=== PATIENT | male | born 1995 | race Caucasian/White ===

== ENCOUNTER 2017-01-01 13:52 | Emergency (ER) | payer MEDICAID, OTHER ==
[~2017-01-01] VITALS: Ht 182.9 cm; Wt 99.0 kg
[2017-01-01 14:24] VITALS: Ht 182.9 cm; Wt 99.0 kg
[2017-01-01] MEDS ORDERED: AMO500 PO (15:34)
--- NOTE | 2017-01-01 15:39 | ERD ---
ER Documentation Chief Complaint Date/Time DATE: 01/01/17 TIME: 15:36 Chief Complaint HPI Patient is a 21-year-old male who presents with left-sided earache as well as sore throat that he states he has had for over 2 weeks almost 3 weeks. He denies fever. He took Motrin one day which helped temporarily. Denies any nausea or vomiting. States he has a lot of mucus especially at night makes it difficult for him to keep. He is tolerating oral intake. ROS All systems reviewed and are negative except as per history of present illness. Medications Home Meds Active Scripts Amoxicillin* (Amoxicillin*) 500 Mg Cap, 500 MG PO BID for 7 Days, CAP Prov:GENNY TORIBIO PA-C 01/01/17 FmHx Family History: No diabetes Physical Exam Vitals Vital Signs Date Time Temp Pulse Resp B/P Pulse Ox O2 Delivery O2 Flow Rate FiO2 01/01/17 14:24 98.1 91 18 162/73 98 Physical Exam Const: [] Head: Atraumatic Eyes: Normal Conjunctiva ENT: Normal External Ears, Nose and Mouth. Neck: Full range of motion..~ No meningismus. Resp: Clear to auscultation bilaterally Cardio: Regular rate and rhythm, no murmurs Abd: Soft, non tender, non distended. Normal bowel sounds Procedures/MDM 21-year-old male presents with sore throat and earache. His vital signs are normal and there is no evidence of obvious bacterial infection however states that this is been going on for 3 weeks and he has had no relief in his symptoms are worse at night. He has tried [id number] medication which have not help and therefore he was given a prescription for amoxicillin given this is already the third week. Recommended this patient follow up with her primary care doctor within 48 hours or return to the emergency room for any worsening of symptoms. However this time I do believe there is suitable for outpatient management. I answered all their questions and they agreed with the plan and were discharged home. Departure Diagnosis: Primary Impression: Otitis media Condition: Stable Patient Instructions: Otitis Media, Abx Tx (Adult) Additional Instructions: Call your primary care doctor TOMORROW for an appointment during the next 1-2 days.See the doctor sooner or return here if your condition worsens before your appointment time. GENNY TORIBIO PA-C Jan 01, 2017 15:39
== END 2017-01-01 15:39 | disposition home or self-care (01) ==
LOC: E/R 13:52
DX: H66.92 Otitis media, unspecified, left ear (principal)
CPT/HCPCS: 99283